=== PATIENT | female | born 1980 | race Caucasian/White ===

== ENCOUNTER 2019-02-28 05:19 | Emergency (ER) | payer SELFPAY ==
[~2019-02-28] VITALS: Ht 167.6 cm; Wt 64.4 kg
--- NOTE | 2019-02-28 05:30 | NUR ---
PT BIBSELF C/O INTERMITTENT CHEST TIGHTNESS RADIATING DOWN L ARM X 1 HOUR. DENIES SOB. DENIES CARDIAC HX. PT AOX4. NAD NOTED. RESP EVEN AND UNLABORED. PT ON MONITOR IN BED 12. WILL CONTINUE TO MONITOR.
--- NOTE | 2019-02-28 05:32 | NUR ---
TECH AT BEDSIDE FOR EKG
--- NOTE | 2019-02-28 05:35 | NUR ---
RADIOLOGY AT BEDSIDE FOR XRAY
--- NOTE | 2019-02-28 05:49 | NUR ---
BLOOD DRAWN AND GIVEN TO LAB
[2019-02-28 05:54] LABS: BASOPHILS # (AUTO) 0.1 /CMM (0.0-0.2); BASOPHILS % (AUTO) 0.8 % (0.0-2.0); EOSINOPHILS % (AUTO) 1.8 % (0.0-6.0); HEMATOCRIT 44 % (33-45); LYMPHOCYTES # (AUTO) 3.4 /CMM (0.8-4.8); LYMPHOCYTES % (AUTO) 37.5 % (20.0-44.0); MEAN CORPUSCULAR HGB CONC 34 g/dl (31.0-36.0); MEAN CORPUSCULAR VOLUME 88 fL (82-100); MONOCYTES # (AUTO) 0.6 /CMM (0.1-1.30); NEUTROPHILS # (AUTO) 4.9 /CMM (1.8-8.9); NEUTROPHILS % (AUTO) 53.9 % (43.0-81.0); PLATELET COUNT (AUTO) 329 /CMM (150-450); RED BLOOD CELL COUNT(AUTO) 5.03 MIL/uL (4.0-5.2); WHITE BLOOD COUNT (AUTO) 9.1 K/uL (4.3-11.0)
[2019-02-28] MEDS ORDERED: LORAZEPAM INJ 2 MG/ML VIAL ONE (05:58)
[2019-02-28] MEDS ORDERED: ASPIRIN 325 MG TABLET ONE (05:58)
[2019-02-28] MEDS ORDERED: LORAZEPAM INJ 2 MG/ML VIAL IV ONE (06:00)
[2019-02-28] MEDS ORDERED: ASPIRIN 325 MG TABLET PO ONE (06:00)
[2019-02-28 06:01] LABS: CARBON DIOXIDE 28 mmol/L (21-32); CHLORIDE 101 mmol/L (98-107); CREATININE 0.8 mg/dL (0.6-1.3); GLUCOSE 112 mg/dL (74-106); POTASSIUM 3.8 mmol/L (3.5-5.1); SODIUM SERUM 137 mmol/L (136-145); UREA NITROGEN, BLOOD 14 mg/dL (7-18)
[2019-02-28] MEDS ORDERED: IV NS 0.9% 1,000 ML BAG IV ONE (06:30)
--- NOTE | 2019-02-28 07:25 | NUR ---
IV removed. Catheter intact and site benign. Pressure and 4x4 applied to site. No bleeding noted.Patient discharged to home in stable condition. Written and verbal after care instructions given. Patient verbalizes understanding of instruction. PT AMBULATORY WITH STEADY GAIT.
[2019-02-28 07:26] VITALS: BP 105/65
== END 2019-02-28 07:26 | disposition home or self-care (01) ==
LOC: ER 05:23
DX: R07.89 Other chest pain (principal); Z98.890 Other specified postprocedural states
CPT/HCPCS: 36415; 71045; 80048; 84484; 85025; 85378; 93005 ×2; 96374; 99284; J2060; J7030